=== PATIENT | female | born 2000 | race Two or more races ===

== ENCOUNTER 2024-03-01 15:57 | Emergency (ER) | payer MEDICAID, SELFPAY ==
--- NOTE | ~2024-03-01 | US_ITS ---
EXAMINATION: US OBSTETRICAL ULTRASOUND CLINICAL INFORMATION: Lower abdominal pain COMPARISON: None available. LMP: 01/30/2024. Gestational age by maternal dates is 4 weeks 3 days. Estimated date of delivery by maternal dates is 11/05/2024. TECHNIQUE: Ultrasound of the maternal pelvis is performed using transabdominal and transvaginal transducers. Transvaginal imaging is performed due to inadequate visualization transabdominally. M-mode Doppler is also performed. FINDINGS: The uterus appears unremarkable. The endometrium is mildly thickened 1.6 cm. No gestational sac is present.. MATERNAL ADNEXA: The right maternal ovary measures 2.3 x 0.9 x 1.0 cm. The left maternal ovary measures 3.8 x 2.1 x 2.7 cm. A 2.2 x 1.5 x 1.8 cm corpus luteal cyst is present There is no significant maternal adnexal mass. Tiny bit of free fluid in the cul-de-sac. US/US OB <= 14 weeks fetus IMPRESSION: No intrauterine is identified at this time. Correlation with beta hCG levels is recommended, as nonvisualization of a gestational sac could be due to an early stage of . Alternatively, lack of an intrauterine gestational sac may also be seen with missed or ectopic , although no adnexal mass is seen to strongly suggest ectopic . Short-term sonographic follow-up and serial beta hCG levels are recommended to assess for development of an intrauterine gestational sac. Electronically signed by: Sancho Villa MD 03/01/2024 07:07 PM EDT
--- NOTE | ~2024-03-01 | US_ITS ---
EXAMINATION: US TRIPLEX UPPER EXTREMITY, LEFT CLINICAL INFORMATION: Pain, shaky redness COMPARISON: None available. TECHNIQUE: Color-flow triplex imaging with spectral analysis and compression Doppler was performed on the left upper extremity. FINDINGS: The left internal jugular, subclavian, and axillary veins are patent and free of thrombus. The imaged segment of the left brachiocephalic vein is patent. Spectral doppler waveforms are normal. The brachial, basilic, cephalic, radial, and ulnar veins are patent and compressible. US/US venous duplex UE LT IMPRESSION: No evidence of deep venous thrombosis involving the left upper extremity. Electronically signed by: Alex Park MD 03/01/2024 06:21 PM EDT
[2024-03-01 17:11] VITALS: BP 114/67; PULSE 88; RESP 16; TEMP 36.9; O2SAT 100; BMI 16.7
--- NOTE | 2024-03-01 17:16 | ED.GENADULT ---
HPI - General Adult General Chief complaint: Abdominal Pain Stated complaint: Abd pain, hand pain - Time Seen by Provider: 03/01/24 22:39 Source: patient Mode of arrival: ambulatory Limitations: no limitations History of Present Illness ED Provider: pushpa CASTRO narrative: Patient is about 5 weeks complaining of mild discomfort on the suprapubic area also noticed pain in the left arm for last 3 days patient has had apparently blood draw in the same arm 1 week ago has a redness spreading from antecubital area all the way to the armpit patient has had a venous Doppler done prior to my evaluation which was negative ultrasound of the pelvis also negative for IUP or ectopic labs were stable Related Data Previous Rx's ?Medication ?Instructions ?Recorded cephalexin 500 mg capsule 500 mg PO QID 10 days #40 caps 03/01/24 Allergies Allergy/AdvReac Type Severity Reaction Status Date / Time No Known Allergies Allergy Verified 03/01/24 17:13 Review of Systems Review of Systems: Yes all other systems are reviewed and are negative PMFSH Social History Social History Smoked in Last 30 Days: No Use of substances other than those prescribed or required for medical reasons: No Advance Directives: No Advance Directives Information Provided: Yes Patient : Yes Physical Exam ED Vital Signs: Vital Signs - 24 hr 03/01/24 17:11 03/01/24 22:51 03/01/24 23:23 Temperature 98.4 F 98.3 F 98.3 F Pulse Rate 88 76 76 Respiratory Rate 16 16 16 Blood Pressure 114/67 99/82 99/82 Pulse Oximetry 100 100 100 Oxygen Delivery Method Room Air Room Air Room Air BMI result Body Mass Index 16.7 Appearance: Alert. Oriented X3. No acute distress. Eyes: No pallor or icterus ENT: Pharynx normal. Oral Mucosa moist Neck: Normal inspection. Neck supple. CVS: Normal heart rate and rhythm. Pulses normal. Respiratory: No respiratory distress. Equal air entry bilateral, no wheezing/rales/rhonchi Abdomen: Soft and nontender. Bowel sounds are present, no mass palpable, no CVA tenderness Skin: Skin warm and dry. Normal skin color. Normal skin turgor. Extremities: No lower extremity edema. No calf tenderness streak off redness on left arm Neuro: Oriented X 3. No motor deficit. No sensory deficit. Course Course Course Narrative: RME, this is a rapid medical exam performed by Catracho Deluna please refer to primary provider for complete H&P- 23-year-old female presents for evaluation of lower abdominal pain, she reports that she is about 4-5 weeks , she is . She also complains of atraumatic left arm pain. She does have faint streaking erythema up the left upper arm. Plan for labs, ultrasound, venous ultrasound of the left upper extremity. Medications Administered Discontinued Medications Generic Name Dose Route Start Last Admin Trade Name Freq PRN Reason Stop Dose Admin Acetaminophen 650 mg 03/01/24 23:06 03/01/24 23:18 Acetaminophen 325 Mg Tablet PO 03/01/24 23:07 650 mg ONCE ONE Administration Cephalexin HCl 500 mg 03/01/24 23:06 03/01/24 23:18 Cephalexin 500 Mg Capsule PO 03/01/24 23:07 500 mg ONCE ONE Administration Medical Decision Making Medical Decision Making [facility] Narrative: Patient with left arm lymphangitis from likely from IV puncture from blood draw will prescribe cephalexin patient is about 5 weeks no IUP or extra adnexal mass seen patient is not significant tender UA is negative for UTI Lab Data MDM Lab Attestation statement: I reviewed the patient's lab results. 03/01/24 17:40 03/01/24 17:40 Labs: Lab Results 03/01/24 03/01/24 Range/Units 17:40 22:58 WBC 7.3 (4.8-10.8) X10*3/uL RBC 4.54 (4.20-5.50) X10*6/uL Hgb 13.2 (12.0-16.0) g/dl Hct 39.3 (37.0-47.0) % MCV 86.6 (80.0-98.0) fL MCH 29.1 (27.0-33.0) pg MCHC 33.6 (31.0-35.0) g/dl RDW 12.4 (11.0-16.0) % Plt Count 324 (160-400) X10*3/uL MPV 9.1 L (9.4-12.3) fL Immature Gran % (Auto) 0.4 (0.0-0.4) % Neut % (Auto) 71.5 (45-73) % Lymph % (Auto) 20.8 (20-40) % [place] % (Auto) 5.6 (2-11) % Eos % (Auto) 1.2 (0-4) % Baso % (Auto) 0.5 (0-2) % Lymph # (Auto) 1.5 (1.2-4.9) X10*3/uL [place] # (Auto) 0.4 (0.1-1.2) X10*3/uL Eos # (Auto) 0.1 (0.0-0.4) X10*3/uL Baso # (Auto) 0.0 (0.0-0.2) X10*3/uL Abs Immat Gran (auto) 0.03 (0.00-0.03) X10*3/uL Absolute Neuts (auto) 5.2 (2.0-8.3) x10*3/uL Absolute Nucleated RBC 0.000 (0.0-0.012) X10*3/uL Nucleated RBC % (auto) 0.0 (0.0-0.2) /100WBC Sodium 141 (135-145) mmol/L Potassium 3.6 (3.3-5.1) mmol/L Chloride 109 H (96-108) mmol/L Carbon Dioxide 23 (22-29) mmol/L Anion Gap 13 (12-20) BUN 15 (9-16) mg/dL Creatinine 0.80 (0.5-1.4) mg/dL Estim Creat Clear Calc 84.9 Estimated GFR > 60 Random Glucose 89 (60-115) mg/dL Lactic Acid 1.0 (0.5-2.0) mmol/L Calcium 9.3 (8.4-10.2) mg/dL Total Bilirubin 0.1 (0.0-1.0) mg/dL AST 17 (5-31) U/L ALT 10 (0-31) U/L Alkaline Phosphatase 52 (39-117) U/L Total Protein 8.0 (6.5-8.0) g/dL Albumin 4.5 (3.5-5.0) g/dL Lipase 29 (8-78) U/L Beta HCG, Quant 513 mIU/mL Urine Color Yellow Urine Appearance Clear Urine pH 6.5 (5.0-9.0) Ur Specific [place] 1.025 (1.005-1.025) Urine Protein Negative (Neg-Trace) mg/dL Urine Glucose (UA) Negative (Negative) mg/dL Urine Ketones Negative (Negative) mg/dL Urine Blood Negative (Negative) Urine Nitrite Negative (Negative) Ur Leukocyte Esterase Negative (Negative) Urine RBC 0-2 (0-2) /HPF Urine WBC 0-5 (0-5) /HPF Ur Squamous Epith Cells 0-2 (0-2) /HPF Urine Bacteria 1+ (None Seen) Hyaline Casts 0-2 (0-2) /LPF Urine Test WEAKLY POSITIVE H (NEGATIVE) Discharge Plan Discharge Clinical Impression: Cellulitis, Early stage of Patient Disposition: Home, Self-Care Instructions: (ED), Cellulitis (ED) Additional Instructions: Take antibiotic as prescribed Report to the ER/PCP if worsening of the redness of the left arm You have early likely 5 weeks Prescriptions: New cephalexin 500 mg capsule 500 mg PO QID 10 Days Qty: 40 0RF Interventions: ED Discharge Assessment Last Done: 03/01/24 23:23 Discharge Date/Time: 03/01/24 23:25 Print Language: Danish
[2024-03-01 17:47] LABS: MANUAL DIFF FLAG NO
[2024-03-01 17:51] LABS: Basophils Percent Auto 0.5 % (0-2); Eosinophils Absolute Auto 0.1 X10*3/uL (0.0-0.4); Eosinophils Percent Auto 1.2 % (0-4); Hematocrit 39.3 % (37.0-47.0); Hemoglobin 13.2 g/dl (12.0-16.0); Imm Gran Abs Auto 0.03 X10*3/uL (0.00-0.03); Imm Gran Pct Auto 0.4 % (0.0-0.4); Lymphocytes Absolute Auto 1.5 X10*3/uL (1.2-4.9); Lymphocytes Percent Auto 20.8 % (20-40); Mean Corpuscular HGB Conc 33.6 g/dl (31.0-35.0); Mean Corpuscular Hemoglobin 29.1 pg (27.0-33.0); Mean Corpuscular Volume 86.6 fL (80.0-98.0); Mean Platelet Volume 9.1 fL (9.4-12.3); Monocytes Absolute Auto 0.4 X10*3/uL (0.1-1.2); Monocytes Percent Auto 5.6 % (2-11); Neutrophils Absolute Auto 5.2 x10*3/uL (2.0-8.3); Neutrophils Percent Auto 71.5 % (45-73); Platelet Count 324 X10*3/uL (160-400); Red Blood Count 4.54 X10*6/uL (4.20-5.50); Red Cell Distribution Width 12.4 % (11.0-16.0); White Blood Count 7.3 X10*3/uL (4.8-10.8)
[2024-03-01 18:09] LABS: Alanine Aminotransferase 10 U/L (0-31); Albumin Level 4.5 g/dL (3.5-5.0); Alkaline Phosphatase 52 U/L (39-117); Anion Gap 13 (12-20); Aspartate Amino Transferase 17 U/L (5-31); Bilirubin Total 0.1 mg/dL (0.0-1.0); Blood Urea Nitrogen 15 mg/dL (9-16); Calcium 9.3 mg/dL (8.4-10.2); Carbon Dioxide 23 mmol/L (22-29); Chloride 109 mmol/L (96-108); Creatinine Clr Calc Pharmacy 84.9; Estimated Glomerular Filt Rate > 60; Glucose Random 89 mg/dL (60-115); HCG Quantitative 513 mIU/mL; Lipase 29 U/L (8-78); Potassium 3.6 mmol/L (3.3-5.1); Sodium 141 mmol/L (135-145)
[2024-03-01 22:51] VITALS: BP 99/82; PULSE 76; RESP 16; TEMP 36.8; O2SAT 100
[2024-03-01 23:13] LABS: Appearance Urine Clear; Color Urine Yellow; Glucose Urine UA Negative (Negative); Leukocyte Esterase Urine Negative (Negative); Nitrite Urine Negative (Negative); PH 6.5 (5.0-9.0); Specific Gravity - Urine 1.025 (1.005-1.025); Urine Blood Negative (Negative); Urine Ketones Negative (Negative); Urine Protein Negative (Neg-Trace)
[2024-03-01 23:15] LABS: UPreg QC Valid YES; Urine Pregnancy WEAKLY POSITIVE (NEGATIVE)
[2024-03-01 23:16] LABS: Bacteria Urine 1+ (None Seen); Hyaline Casts Urine 0-2 /LPF (0-2); RBC Urine 0-2 /HPF (0-2); Squamous Epithelial Cell Urine 0-2 /HPF (0-2); WBC Urine 0-5 /HPF (0-5)
[2024-03-01] MEDS: Acetaminophen 325 MG TABLET 650 MG PO (23:18)
[2024-03-01] MEDS: cephALEXin 500 MG CAPSULE PO (23:18)
[2024-03-01 23:23] VITALS: BP 99/82; PULSE 76; RESP 16; TEMP 36.8; O2SAT 100
== END 2024-03-01 23:25 | disposition home or self-care (01) ==
LOC: HO.ED 23:19
PROVIDERS: Physician Assistant; Emergency Provider Internal Medicine
DX: O26.891 Other specified pregnancy related conditions, first trimester (principal); L03.114 Cellulitis of left upper limb; M79.602 Pain in left arm; Z3A.01 Less than 8 weeks gestation of pregnancy
CPT/HCPCS: 36415; 76801; 80053; 81001; 81025; 83605; 83690; 84702; 85025; 87040; 93971; 99284